=== PATIENT | female | born 1995 | race Caucasian/White ===

== ENCOUNTER 2017-10-20 13:49 | Emergency (ER) | payer OTHER ==
[~2017-10-20] VITALS: Ht 160 cm; Wt 64.9 kg
[~2017-10-20 13:49] MED LIST: KEFLEX500 MG PO; NAPR500T14 PO; PEPCID20 MG PO; SINGULAIR 10MG10 MG PO; TRAM1TAB98 PO; ULTRACET PO
[2017-10-20] MEDS ORDERED: LUTERA-28 TABL1 EACH (14:05)
== END 2017-10-20 16:23 | disposition home or self-care (01) ==
LOC: EMR PED 13:49 → ER 13:54
DX: M62.838 Other muscle spasm (principal)

== ENCOUNTER 2018-01-04 22:24 | Emergency (ER) | payer OTHER ==
[~2018-01-04] VITALS: Ht 160 cm; Wt 59.9 kg
[~2018-01-04 22:24] MED LIST changes: +LUTERA-28 TABL1 EACH
== END 2018-01-05 00:14 | disposition home or self-care (01) ==
LOC: ER 22:24
DX: M54.5 Low back pain (principal)

== ENCOUNTER 2018-08-26 13:32 | Outpatient (CLI) | payer OTHER | END 2018-08-26 13:43 | disposition home or self-care (01) | LOC: SONOGRAMA 13:32 | DX: D28.0 Benign neoplasm of vulva (principal) ==

== ENCOUNTER 2021-07-24 16:47 | Emergency (ER) | payer OTHER ==
[~2021-07-24] VITALS: Ht 160 cm; Wt 61.2 kg
== END 2021-07-24 21:44 | disposition home or self-care (01) ==
LOC: ER 16:47
DX: O26.891 Other specified pregnancy related conditions, first trimester (principal); R10.2 Pelvic and perineal pain; Z3A.10 10 weeks gestation of pregnancy

== ENCOUNTER 2021-08-22 09:00 | Outpatient (CLI) | payer OTHER | END 2021-08-22 09:47 | disposition home or self-care (01) | LOC: PRENATAL 09:00 | PROVIDERS: ATTEND Obstetrics & Gynecology Maternal & Fetal Medicine | DX: O36.80X0 Pregnancy with inconclusive fetal viability, not applicable or unspecified (principal); Z36.0 Encounter for antenatal screening for chromosomal anomalies; Z3A.14 14 weeks gestation of pregnancy ==

== ENCOUNTER 2021-08-23 15:17 | Emergency (ER) | payer OTHER ==
[~2021-08-23] VITALS: Ht 160 cm; Wt 59.4 kg
== END 2021-08-23 20:58 | disposition home or self-care (01) ==
LOC: ER 15:17
DX: O26.892 Other specified pregnancy related conditions, second trimester (principal); Z3A.15 15 weeks gestation of pregnancy; R10.2 Pelvic and perineal pain; R42 Dizziness and giddiness

== ENCOUNTER 2021-11-22 13:51 | Outpatient (CLI) | payer OTHER | END 2021-11-22 15:25 | disposition home or self-care (01) | LOC: PRENATAL 13:51 | PROVIDERS: ATTEND Obstetrics & Gynecology Maternal & Fetal Medicine | DX: O35.0XX0 Maternal care for (suspected) central nervous system malformation in fetus, not applicable or unspecified (principal); O35.3XX0 Maternal care for (suspected) damage to fetus from viral disease in mother, not applicable or unspecified; Z3A.28 28 weeks gestation of pregnancy ==

== ENCOUNTER 2021-12-17 16:09 | Outpatient (CLI) | payer OTHER ==
[~2021-12-17] VITALS: Ht 160 cm; Wt 69.9 kg
== END 2021-12-18 11:45 | disposition home or self-care (01) ==
LOC: OBS/DEL 16:09
PROVIDERS: ATTEND Obstetrics & Gynecology Obstetrics
DX: O26.893 Other specified pregnancy related conditions, third trimester (principal); Z3A.31 31 weeks gestation of pregnancy; R10.814 Left lower quadrant abdominal tenderness; M62.838 Other muscle spasm; Z20.822 Contact with and (suspected) exposure to COVID-19

== ENCOUNTER 2022-02-13 10:46 | Inpatient (IN) | payer OTHER ==
[~2022-02-13] VITALS: Ht 160 cm; Wt 77.1 kg
[2022-02-13] MEDS ORDERED: PRENATAL TABLE1 EAC1 PO (11:01)
== END 2022-02-16 13:24 | disposition home or self-care (01) | DRG 807 ==
LOC: LDR 10:46 → OB/GYN 02-14 20:09
PROVIDERS: ADMIT Obstetrics & Gynecology Obstetrics; ATTEND Obstetrics & Gynecology Obstetrics
PROC: 4A1HXCZ Monitoring of Products of Conception, Cardiac Rate, External Approach (ICD-10-PCS; 2022-02-13)
PROC: 10E0XZZ Delivery of Products of Conception, External Approach (ICD-10-PCS; principal; 2022-02-14)
DX: O80 Encounter for full-term uncomplicated delivery (principal); Z37.0 Single live birth; Z3A.40 40 weeks gestation of pregnancy; Z20.822 Contact with and (suspected) exposure to COVID-19

== ENCOUNTER 2022-08-15 21:43 | Emergency (ER) | payer OTHER ==
[~2022-08-15] VITALS: Ht 160 cm; Wt 63.5 kg
[~2022-08-15 21:43] MED LIST changes: +PRENATAL TABLE1 EAC1 PO
[2022-08-15] MEDS ORDERED: FLUOXETINE HCL60 MG PO (21:58)
[2022-08-15] MEDS ORDERED: CLONAZEPAM1 MG PO (21:58)
[2022-08-15] MEDS ORDERED: NAPROXEN250 MG PO (21:59)
== END 2022-08-16 09:56 | disposition home or self-care (01) ==
LOC: ER 21:43
DX: N20.1 Calculus of ureter (principal)

== ENCOUNTER 2022-09-01 12:35 | Outpatient (CLI) | payer OTHER ==
[~2022-09-01 12:35] MED LIST changes: +CLONAZEPAM1 MG PO; +FLUOXETINE HCL60 MG PO; +NAPROXEN250 MG PO
== END 2022-09-01 12:40 | disposition home or self-care (01) ==
LOC: RAD 12:35
PROVIDERS: ATTEND Urology
DX: N20.1 Calculus of ureter (principal)